=== PATIENT | female | born 1965 | race Caucasian/White ===

== ENCOUNTER 2023-01-27 08:44 | Day surgery (SDC) | payer BC ==
[2023-01-25 10:43] VITALS: BMI 24.7
[~2023-01-27 08:44] MED LIST: LACTATED RINGERS 1,000 ML IV SCH; LIDOCAINE 1% (10MG/ML) FOR IV START INTRADERMA PRN
[2023-01-27 09:20] VITALS: RESP 16
--- NOTE | 2023-01-27 09:29 | P.GSHP ---
History of Present Illness H&P Date: 01/27/23 Chief Complaint: Screening colonoscopy This a 57-year-old female been safe for screening colonoscopy. Patient denies a significant GI complaints. Past Medical History Past Medical History: No Reported History Additional Past Medical History / Comment(s): Celiac Disease. History of Any Multi-Drug Resistant Organisms: None Reported Additional Past Surgical History / Comment(s): [place] tooth removed, colonoscopy, EGD. Past Anesthesia/Blood Transfusion Reactions: No Reported Reaction Past Psychological History: No Psychological Hx Reported Smoking Status: Former smoker Past Alcohol Use History: Occasional Additional Past Alcohol Use History / Comment(s): Quit smoking 20 yrs ago. Past Drug Use History: None Reported - Past Family History Mother Family Medical History: Cancer Additional Family Medical History / Comment(s): Breast cancer. Father Family Medical History: Cancer Additional Family Medical History / Comment(s): Prostate cancer. Medications and Allergies Home Medications Medication Instructions Recorded Confirmed Type Coconut Oil 1 tab PO DAILY 01/25/23 01/27/23 History Ferrous Sulfate [Feosol] 325 mg PO DAILY 01/25/23 01/27/23 History Multivitamins, Thera [Multivitamin 1 tab PO DAILY 01/25/23 01/27/23 History (formulary)] Allergies Allergy/AdvReac Type Severity Reaction Status Date / Time gluten AdvReac Celiac Verified 01/27/23 09:07 Disease Surgical - Exam Vital Signs Pulse Resp BP Pulse Ox 69 16 138/74 99 01/27/23 09:12 01/27/23 09:12 01/27/23 09:12 01/27/23 09:12 - General well developed, well nourished, no distress - Eyes PERRL - ENT normal pinna - Neck no masses - Respiratory normal expansion - Cardiovascular Rhythm: regular - Abdomen Abdomen: soft, non tender Assessment and Plan Assessment: We'll perform screening colonoscopy
[2023-01-27] MEDS ORDERED: PROPOFOL 10 MG/ML 20 ML VIAL IV ONE (09:34)
[2023-01-27] MEDS ORDERED: LIDOCAINE 2% INJ 20 MG/ML (2 ML VIAL) ONE (09:34)
--- NOTE | 2023-01-27 09:53 | P.OP ---
Date of Procedure: 01/27/23 Preoperative Diagnosis: Screening colonoscopy Postoperative Diagnosis: Mild diverticulosis Procedure(s) Performed: Colonoscopy Anesthesia: MAC Surgeon: Jorge Franklin Pathology: none sent Condition: stable Disposition: PACU Description of Procedure: The patient's placed on the endoscopy table in the lateral position. She received IV sedation. Digital rectal exam was performed. This revealed no abnormalities. The flexible colonoscope was then placed patient anus passed throughout the entire colon. The ileocecal valve was visualized. The cecum, ascending and transverse colon appeared normal. The descending and sigmoid colon there is mild diverticular changes. The scope was brought back the rectum and this appeared normal. Scope withdrawn for patient.
[2023-01-27 10:11] VITALS: BP 120/58; PULSE 70
== END 2023-01-27 10:29 | disposition home or self-care (01) ==
LOC: ORWHC2ENDO 08:44
PROVIDERS: ATTEND Surgery
DX: Z12.11 Encounter for screening for malignant neoplasm of colon (principal); K57.30 Diverticulosis of large intestine without perforation or abscess without bleeding; F10.90 Alcohol use, unspecified, uncomplicated; D64.9 Anemia, unspecified; Z87.891 Personal history of nicotine dependence; Z80.3 Family history of malignant neoplasm of breast; Z79.899 Other long term (current) drug therapy; Z88.8 Allergy status to other drugs, medicaments and biological substances
CPT/HCPCS: 45378; J2704; J2001